=== PATIENT | male | born 1980 | race African-American/Black ===

== ENCOUNTER 2017-06-29 06:14 | Emergency (ER) | payer OTHER ==
[~2017-06-29] VITALS: Ht 190.5 cm; Wt 95.3 kg
[2017-06-29 06:20] VITALS: BP 126/72
--- NOTE | 2017-06-29 06:20 | NUR ---
PT AMBULATORY TO ER BED 7. PT BIB SELF C/O SORE THROAT X 1 DAY. VSS/RESP EVEN UNLABORED/NAD NOTED/DENIES N-V-D/SKIN WARM AND DRY/AOX4. AWAITING MD BROTHERS.
[2017-06-29] MEDS ORDERED: KETOROLAC TROMETHAMINE INJ 30 MG/ML VIAL ONE (06:51)
[2017-06-29] MEDS ORDERED: LIDOCAINE VISCOUS 2% UD 15 ML UDC ONE (06:51)
[2017-06-29] MEDS ORDERED: LIDOCAINE VISCOUS 2% UD 15 ML UDC MM ONE (07:00)
[2017-06-29] MEDS ORDERED: KETOROLAC TROMETHAMINE INJ 60 MG/2 ML VIAL IM ONE (07:00)
== END 2017-06-29 07:11 | disposition home or self-care (01) ==
LOC: ER 06:16
DX: J02.9 Acute pharyngitis, unspecified (principal)
CPT/HCPCS: 96372; 99283; A4606; J1885; Z7610